=== PATIENT | female | born 1980 | race Caucasian/White ===

== ENCOUNTER 2017-05-12 19:55 | Observation (INO) | payer SELFPAY ==
[2017-05-12] MEDS ORDERED: ONDANSETRON HCL/PF 2 MG/ML VIAL IV ONE (21:36)
[2017-05-12] MEDS ORDERED: MORPHINE SULFATE 4 MG/ML SYRG IV ONE (21:36)
--- NOTE | 2017-05-12 21:37 | ERNOTE ---
Integumentary HPI - Narrative Date of Service: 05/12/17 - General Presenting Symptoms: abscess Time Seen by Provider: 05/12/17 21:21 Source: patient, RN notes reviewed Exam Limitations: no limitations - Immun/Allergies/Home Medications Immunizations: IMMUNIZATION HX Immunizations Up to Date Yes History of Influenza Vaccine Yes Hx Pneumococcal Vaccination No Allergies/Adverse Reactions: Allergies Allergy/AdvReac Type Severity Reaction Status Date / Time acetaminophen [From Vicodin] Allergy Verified 05/12/17 20:28 hydrocodone [From Vicodin] Allergy Verified 05/12/17 20:28 Home Medications: HOME MEDICATIONS Tramadol HCl [Rybix Odt] 50 mg PO 05/12/17 [Last Taken Unknown] oxyCODONE HCL/ACETAMINOPHEN [Percocet 5 MG/325 MG] 05/12/17 [Last Taken Unknown ] - History of Present Illness Narrative: 36 year old female presents to the ED for an abscess on her upper lip that began 3 days ago. She has a history of recurrent MRSA since 2011. She had an abscess near her eye about a month ago and has been taking the Bactrim leftover from this episode without improvement. She is unsure if she has had a fever. Location: Reports: facial Quality: Reports: painful Severity: severe Prior Treatment: Reports: recently seen, treated by physician, currently on antibiotics Review of Systems - Review of Systems Constitutional: Present: malaise. Absent: chills EYE: Absent: eye pain, eye discharge ENT: Present: no symptoms reported Respiratory: Absent: shortness of breath, cough Cardiology: Absent: chest pain, syncope Gastrointestinal/Abdominal: Absent: nausea, vomiting Genitourinary: Present: no symptoms reported Musculoskeletal: Absent: neck pain, joint pain Skin: Absent: rash, lesions Neurological: Present: no symptoms reported Endocrine: Present: no symptoms reported Hematologic/Lymphatic: Present: no symptoms reported Psych: Present: no symptoms reported - Patient's Past Medical History Patient History - Medical: Alcohol Abuse, Depression Patient History - Cardiac/Respiratory: No pertinent hx Patient History - Cancer: No Hx of Cancer Patient History - Surgical Procedures: Ear Tubes, T & A, Other Patient History - Other: None - Social History Living Situations: spouse Psych History: Hx of Anxiety, Hx of Depression Smoking Status: Current every day smoker Have you smoked in the past 12 months: Yes Do you dip or chew tobacco: No Alcohol Use: none Drug Use: none - Immunizations Immunizations Up to Date: Yes Hx Pneumococcal Vaccination: No History of Influenza Vaccine: Yes Physical Exam - Physical Exam General Appearance: Present: alert, mild distress, obese, other - Disheveled, poor hygiene Head Exam: Present: swelling - inflammation to upper lip, severe, indurated with small area of pointing present, tenderness - upper lip Neck: Present: normal inspection, nontender, supple Respiratory: Present: no respiratory distress, normal breath sounds, no accessory muscle use, lungs clear Cardiovascular/Chest: Present: regular rate, rhythm, no murmur, normal peripheral pulses Gastrointestinal/Abdominal: Present: nontender, nondistended, soft Neurological Exam: Present: alert, oriented, normal mood/affect Skin Exam: Present: warm/dry, skin rash - numerous crusted lesions scattered on trunk and extremities ED Progress - Results and Orders Patient's Lab Results:: I have reviewed the patient's lab results. - Vital Signs Patient's Vital Signs:: I have reviewed the patient's vital signs. Vital Signs: Vital Signs 05/12/17 20:16 Temperature 36.3 C L Pulse Rate 97 Respiratory 14 Rate Blood Pressure 134/90 O2 Sat by Pulse 98 Oximetry - Progress/Reassessment Chief Complaint: Abscess Progress:: Unchanged Progress Note-Subjective: 05/12/17 22:02 Abscess unroofed with needle, small amount of drainage expressed to obtain culture. Patient tolerated very poorly. WBC elevated at 15.5. Lactic acid pending. IV Cleocin ordered. To be started after urine obtained. - Transfer of Care Physician Sign Out: Elenita Ramos Receiving Physician: Oksana Martin Expected Disposition: Admit Departure Clinical Impression: Facial abscess - Departure Disposition: [facility] Condition: Fair Referrals: Susan Grey MD [Primary Care Provider] -
[2017-05-12 21:46] LABS: Hematocrit 43.9 % (37.0-47.0); Hemoglobin 14.6 gm/dL (12.5-16.0); Mean Cell Volume 94.4 fl (78-100); Mean Corpuscular Hemoglobin 31.4 pg (27-31); Mean Corpuscular Hgb Conc 33.3 g/dl (32-36); Mean Platelet Volume 10.9 fl (6.0-9.5); Neutrophil % 77.5 % (42-75.0); Platelet Count 274 K/mm3 (150-450); Red Blood Count 4.65 M/mm3 (4.2-5.4); Red Cell Distribution Width 12.6 % (11.5-14.0); White Blood Count 15.5 K/mm3 (4.0-10.5)
[2017-05-12 21:54] LABS: Albumin * 3.8 gm/dl (3.4-5.0); Anion Gap 11.8 mmol/L (6.8-13.8); BUN/Creatinine Ratio 11.7 (9.0-21.6); Bilirubin, Total 0.3 mg/dL (0.0-1.1); Calcium * 9.2 mg/dL (7.9-10.9); Carbon Dioxide 28.6 mmol/L (24-32.6); Potassium 4.4 mmol/L (3.4-4.6); Total Protein 8.8 gm/dL (6.2-8.2)
[2017-05-12] MEDS ORDERED: MORPHINE SULFATE 4 MG/ML SYRG ONE (21:55)
[2017-05-12] MEDS ORDERED: ONDANSETRON HCL/PF 2 MG/ML VIAL ONE (21:56)
[2017-05-12] MEDS ORDERED: CLINDAMYCIN PHOSPHATE 900 MG in DEXTROSE 5 % IN WATER 100 ML IV ONE ×2 (22:00)
[2017-05-12 22:24] LABS: Urine Bilirubin Negative (NEGATIVE); Urine Blood Negative /ul (NEGATIVE); Urine Ketone Negative (NEGATIVE); Urine Nitrite Negative (NEGATIVE); Urine Protein 30 mg/dL (NEGATIVE); Urine Specific Gravity >=1.030 SP.GR. (1.005-1.010); Urine Urobilinogen Normal (NORMAL)
[2017-05-12 22:33] LABS: Urine Appearance Cloudy; Urine Bacteria TRACE; Urine Color Yellow; Urine RBC None Seen /hpf (0-5); Urine WBC 0-5 /hpf (0-5)
[2017-05-12 22:41] LABS: Cocaine Ur Negative (NEGATIVE); Urine Barbiturate Negative (NEGATIVE); Urine Benzodiazepines Negative (NEGATIVE); Urine Opiates Negative (NEGATIVE); Urine PCP Negative (NEGATIVE)
[2017-05-12 22:42] LABS: Urine THC Positive (NEGATIVE)
--- NOTE | 2017-05-13 02:40 | ERNOTE ---
Integumentary HPI - General Presenting Symptoms: abscess Time Seen by Provider: 05/12/17 21:21 Source: patient Exam Limitations: no limitations - Immun/Allergies/Home Medications Immunizations: IMMUNIZATION HX Immunizations Up to Date Yes History of Influenza Vaccine Yes Hx Pneumococcal Vaccination No Allergies/Adverse Reactions: Allergies Allergy/AdvReac Type Severity Reaction Status Date / Time acetaminophen [From Vicodin] Allergy Verified 05/12/17 20:28 hydrocodone [From Vicodin] Allergy Verified 05/12/17 20:28 Home Medications: HOME MEDICATIONS Tramadol HCl [Rybix Odt] 50 mg PO 05/12/17 [Last Taken Unknown] oxyCODONE HCL/ACETAMINOPHEN [Percocet 5 MG/325 MG] 05/12/17 [Last Taken Unknown ] - History of Present Illness Narrative: Care taken over from Pennie Ramos. - Patient's Past Medical History Patient History - Medical: Alcohol Abuse, Depression Patient History - Cardiac/Respiratory: No pertinent hx Patient History - Cancer: No Hx of Cancer Patient History - Surgical Procedures: Ear Tubes, T & A, Other Patient History - Other: None - Social History Living Situations: spouse Psych History: Hx of Anxiety, Hx of Depression Smoking Status: Current every day smoker Have you smoked in the past 12 months: Yes Do you dip or chew tobacco: No Alcohol Use: none Drug Use: none - Immunizations Immunizations Up to Date: Yes Hx Pneumococcal Vaccination: No History of Influenza Vaccine: Yes ED Progress - Results and Orders Patient's Lab Results:: I have reviewed the patient's lab results. Results and Orders: Laboratory Results - last 24 hr 05/12/17 05/12/17 05/12/17 21:35 21:35 21:35 WBC 15.5 H RBC 4.65 Hgb 14.6 Hct 43.9 MCV 94.4 MCH 31.4 H MCHC 33.3 RDW 12.6 Plt Count 274 MPV 10.9 H Immature Gran % (Auto) 0.30 Immature Gran # (Auto) 0.05 H Neutrophils % 77.5 H Lymphocytes % 16.4 L Monocytes % 4.6 Eosinophils % 0.8 Basophils % 0.4 Nucleated RBC % 0.0 Neutrophils # 12.0 H Lymphocytes # 2.6 Monocytes # 0.7 Eosinophils # 0.1 Absolute Basophils 0.1 Sodium 135 Plasma Sodium 135 Potassium 4.4 Chloride 99 Carbon Dioxide 28.6 Anion Gap 11.8 BUN 11 Creatinine 0.94 Est GFR (Non-Af Amer) 71 BUN/Creatinine Ratio 11.7 Random Glucose 128 H Lactic Acid, Venous Calcium 9.2 Calcium Adj for Albumin 9.0 Total Bilirubin 0.3 AST 15 ALT 34 Alkaline Phosphatase 80 Total Protein 8.8 H Albumin 3.8 Serum HCG, Qual Negative Urine Color Urine Appearance Urine pH Ur Specific [place] Urine Protein Urine Glucose (UA) Urine Ketones Urine Blood Urine Nitrate Urine Bilirubin Prot Sulfosalicylic Acd Urine Urobilinogen Ur Leukocyte Esterase Urine RBC Urine WBC Ur Epithelial Cells Urine Bacteria Urine Culture Comments Urine Opiates Screen Barbiturate Screen Ur Phencyclidine Scrn Urine Amphetamine U Benzodiazepines Scrn Urine Cocaine Screen Urine Marijuana (THC) 05/12/17 05/12/17 05/12/17 22:10 22:10 22:10 WBC RBC Hgb Hct MCV MCH MCHC RDW Plt Count MPV Immature Gran % (Auto) Immature Gran # (Auto) Neutrophils % Lymphocytes % Monocytes % Eosinophils % Basophils % Nucleated RBC % Neutrophils # Lymphocytes # Monocytes # Eosinophils # Absolute Basophils Sodium Plasma Sodium Potassium Chloride Carbon Dioxide Anion Gap BUN Creatinine Est GFR (Non-Af Amer) BUN/Creatinine Ratio Random Glucose Lactic Acid, Venous 2.5 H* Calcium Calcium Adj for Albumin Total Bilirubin AST ALT Alkaline Phosphatase Total Protein Albumin Serum HCG, Qual Urine Color Yellow Urine Appearance Cloudy Urine pH 6.0 Ur Specific [place] >=1.030 Urine Protein 30 H Urine Glucose (UA) Negative Urine Ketones Negative Urine Blood Negative Urine Nitrate Negative Urine Bilirubin Negative Prot Sulfosalicylic Acd Negative Urine Urobilinogen Normal Ur Leukocyte Esterase 25 H Urine RBC None seen Urine WBC 0-5 Ur Epithelial Cells 10-25 H Urine Bacteria Trace Urine Culture Comments Culture to follow Urine Opiates Screen Negative Barbiturate Screen Negative Ur Phencyclidine Scrn Negative Urine Amphetamine Positive H U Benzodiazepines Scrn Negative Urine Cocaine Screen Negative Urine Marijuana (THC) Positive H 05/13/17 00:40 WBC RBC Hgb Hct MCV MCH MCHC RDW Plt Count MPV Immature Gran % (Auto) Immature Gran # (Auto) Neutrophils % Lymphocytes % Monocytes % Eosinophils % Basophils % Nucleated RBC % Neutrophils # Lymphocytes # Monocytes # Eosinophils # Absolute Basophils Sodium Plasma Sodium Potassium Chloride Carbon Dioxide Anion Gap BUN Creatinine Est GFR (Non-Af Amer) BUN/Creatinine Ratio Random Glucose Lactic Acid, Venous 0.6 Calcium Calcium Adj for Albumin Total Bilirubin AST ALT Alkaline Phosphatase Total Protein Albumin Serum HCG, Qual Urine Color Urine Appearance Urine pH Ur Specific [place] Urine Protein Urine Glucose (UA) Urine Ketones Urine Blood Urine Nitrate Urine Bilirubin Prot Sulfosalicylic Acd Urine Urobilinogen Ur Leukocyte Esterase Urine RBC Urine WBC Ur Epithelial Cells Urine Bacteria Urine Culture Comments Urine Opiates Screen Barbiturate Screen Ur Phencyclidine Scrn Urine Amphetamine U Benzodiazepines Scrn Urine Cocaine Screen Urine Marijuana (THC) - Vital Signs Patient's Vital Signs:: I have reviewed the patient's vital signs. Vital Signs: Vital Signs 05/12/17 05/12/17 05/13/17 20:16 23:11 00:46 Temperature 36.3 C L Pulse Rate 97 84 83 Respiratory 14 16 18 Rate Blood Pressure 134/90 115/57 149/95 O2 Sat by Pulse 98 97 99 Oximetry - CT/Ultrasound CT/Ultrasound Narrative: CT Facial with contrast No localized abscess noted, facial swelling was noted, concentrated more over the upper lip. No fractures. - Progress/Reassessment Chief Complaint: Abscess Progress:: Unchanged Procedures Lower Medial Face Date and Time: 05/13/17 00:34 I & D Prep: betadine prep Blade Size: 22 gauge needle Findings and Actions: purulent drainage small Estimated blood loss (ml): 0 - The needle was used to scrape off the top of a small yellow spot that oozed a small amount of pustular material. Complications: Pt ioan procedure well Plan - Plan Plan: Case discussed with MANOJ Portillo, she agreed to accept the patient for an observation admission for facial cellulitis. Departure Clinical Impression: Facial abscess - Departure Disposition: [facility] Condition: Fair
[2017-05-13] MEDS ORDERED: KETOROLAC TROMETHAMINE 30 MG/ML VIAL IM PRN (02:41)
[2017-05-13] MEDS ORDERED: oxyCODONE HCL/ACETAMINOPHEN 1 TAB TABLET PO PRN (02:42)
--- NOTE | 2017-05-13 03:29 | HP ---
Chief Complaint - Chief Complaint Date of Service: 05/13/17 Time of Service: 02:54 Chief Complaint: "mouth swelling, headaches, lesion on face". Source of HPI- Pt ; reliable, ERP report. History of Present Illness: Ms. Alvarado is a 36-yr-old WF with a PMH of: Anxiety, HTN & PTSD who presented to the ED with increasing swelling, pain and redness of her upper lip which begun 3 days ago. She also developed lesion on her LT chin and she noticed spreading redness to her left jaw area. She denies having fevers or chills. She reports having MRSA infected abscess in her pubic area in 2011 and received treatment with Bactrim. In Mar, 2017, she states that she had another abscess on her LT eye and she was treated with Bactrim. However, she admits that she did not complete the antibiotics course and actually used the left over pills to treat her current lip swelling/redness. At the ED tonight Laboratory studies showed she had WBC --> 15,500 with left shift, Lactic acid --> 2.5. UA was negative of infection but was positive for Amphetamines and Marijuana. The facial CT was negative of deep infections signs such as abscess. Cultures of the abscess on the upper lip was obtained by the ERP following slight opening with a needle and she received IV clindamycin. She will be admitted under observation status in order to monitor response to parenteral antibiotic therapy which will guide the choice of continued outpatient treatment, and also due to pt's history of poor adherence to medication. - Patient's Past Medical History Patient History - Medical: Alcohol Abuse, Anxiety, Depression, Other - PTSD Patient History - Cancer: No Hx of Cancer Patient History - Surgical Procedures: Ear Tubes, T & A, Other Patient History - Other: None LMP (females 10-50): last week LMP (Calendar): 05/07/17 - Family History Mother Family History - Medical: No pertinent hx Family History - Cardiac/Respiratory: No pertinent hx Father Family History - Medical: No pertinent hx Family History - Cardiac/Respiratory: No pertinent hx Family History - Cancer: Leukemia - Social History Living Situations: spouse Psych History: Hx of Anxiety, Hx of Depression Smoking Status: Current every day smoker Have you smoked in the past 12 months: Yes Do you dip or chew tobacco: No Patient requests Smoking Cessation Consult: No Initiate information on Smoking Cessation: No Alcohol Use: none Drug Use: none - Immunizations Immunizations Up to Date: Yes Hx Pneumococcal Vaccination: No History of Influenza Vaccine: Yes Review Of Systems (GEN) - Review of Systems Generalized/Overall Review: Absent: Weakness, Chills, Fever, Diaphoresis EENTM: Present: Ear Pain - LT ear, Mouth Pain, Mouth Swelling. Absent: Blurred Vision, Double Vision, Nose Pain, Nose Congestion Respiratory: Absent: Cough, Shortness of Breath, Orthopnea Cardiac: Absent: Chest Pain, Edema, Palpitations Abdominal: Absent: Nausea, Vomiting, Hematemesis, Abdominal Pain, Constipation, Diarrhea Genitourinary: Absent: Burning, Itching, Urgency, Hesitancy Musculoskeletal: Present: Neck Pain. Absent: Joint Pain, Back Pain, Muscle Pain Neurological: Present: Anxiety, Depressed. Absent: Headache, Weakness Skin: Present: Lesions - scattered lesions.. Absent: Dryness, Bruising Endocrine: Present: Intolerance to Heat. Absent: Intolerance to Cold, Increased Hunger, Flushing, Increased Thirst Immunizations: IMMUNIZATION HX Immunizations Up to Date Yes History of Influenza Vaccine Yes Hx Pneumococcal Vaccination No Allergies/Adverse Reactions: Allergies Allergy/AdvReac Type Severity Reaction Status Date / Time acetaminophen [From Vicodin] Allergy Verified 05/12/17 20:28 hydrocodone [From Vicodin] Allergy Verified 05/12/17 20:28 Home Medications: HOME MEDICATIONS Tramadol HCl [Rybix Odt] 50 mg PO Q6H PRN 05/12/17 [Last Taken Unknown] oxyCODONE HCL/ACETAMINOPHEN [Percocet 5 MG/325 MG] 1 tab PO Q6H PRN 05/12/17 [ Last Taken Unknown] Exam - Exam Vital Signs: Vital Signs - Last Taken Temp 36.7 C 05/13/17 02:22 Pulse 77 05/13/17 02:22 Resp 18 05/13/17 02:22 BP 136/60 05/13/17 02:22 Pulse Ox 97 05/13/17 02:22 Constitutional: Present: Alert, Oriented x3, Cooperative, Mild distress ENT Exam: Present: other - upper lip swelling with redness Eye Exam: bilateral eye: normal inspection, PERRL Neck: Present: non-tender, full range of motion, supple Back Exam: Present: normal inspection, no CVA tenderness Breasts: Present: Exam deferred Respiratory: Present: lungs clear, no accessory muscle use, No wheezing Cardiovascular/Chest: Present: normal peripheral pulses, regular rate, rhythm, no chest tenderness, no murmur Abdomen: Present: Normal bowel sounds, soft, nontender, obese /Rectal: Present: Exam deferred Extremity: Present: normal range of motion, non-tender, normal inspection Skin Exam: Present: other - Erythema on lt side of face Lymphatic: Present: no adenopathy Neurologic: Present: no motor/sensory deficits, alert, oriented x 3 Appearance: Present: appropriate appearance, appropriate insight Eye contact: Present: cooperative, good eye contact, normal speech Thoughts: Present: normal thought pattern, no apparent hallucination Diagnostic Studies: Laboratory Results WBC 15.5 K/mm3 (4.0-10.5) H 05/12/17 21:35 RBC 4.65 M/mm3 (4.2-5.4) 05/12/17 21:35 Hgb 14.6 gm/dL (12.5-16.0) 05/12/17 21:35 Hct 43.9 % (37.0-47.0) 05/12/17 21:35 MCV 94.4 fl (78-100) 05/12/17 21:35 MCH 31.4 pg (27-31) H 05/12/17 21:35 MCHC 33.3 g/dl (32-36) 05/12/17 21:35 RDW 12.6 % (11.5-14.0) 05/12/17 21:35 Plt Count 274 K/mm3 (150-450) 05/12/17 21:35 MPV 10.9 fl (6.0-9.5) H 05/12/17 21:35 Immature Gran % (Auto) 0.30 % (0.001-0.429) 05/12/17 21:35 Immature Gran # (Auto) 0.05 K/mm3 (0.000-0.0310) H 05/12/17 21:35 Neutrophils % 77.5 % (42-75.0) H 05/12/17 21:35 Lymphocytes % 16.4 % (20-51) L 05/12/17 21:35 Monocytes % 4.6 % (0.0-9) 05/12/17 21:35 Eosinophils % 0.8 % (0.0-3.0) 05/12/17 21:35 Basophils % 0.4 % (0.0-1.0) 05/12/17 21:35 Nucleated RBC % 0.0 k/mm3 (0-1) 05/12/17 21:35 Neutrophils # 12.0 K/mm3 (1.3-6.0) H 05/12/17 21:35 Lymphocytes # 2.6 k/mm3 (1.5-3.5) 05/12/17 21:35 Monocytes # 0.7 k/mm3 (0.0-1.0) 05/12/17 21:35 Eosinophils # 0.1 k/mm3 (0.0-0.7) 05/12/17 21:35 Absolute Basophils 0.1 k/mm3 (0.0-0.1) 05/12/17 21:35 Sodium 135 mmol/L (132-142) 05/12/17 21:35 Plasma Sodium 135 mmol/L (130-142) 05/12/17 21:35 Potassium 4.4 mmol/L (3.4-4.6) 05/12/17 21:35 Chloride 99 mmol/L (97-106) 05/12/17 21:35 Carbon Dioxide 28.6 mmol/L (24-32.6) 05/12/17 21:35 Anion Gap 11.8 mmol/L (6.8-13.8) 05/12/17 21:35 BUN 11 mg/dL (3-23) 05/12/17 21:35 Creatinine 0.94 mg/dL (0.4-1.4) 05/12/17 21:35 Est GFR (Non-Af Amer) 71 mL/min (60-130) 05/12/17 21:35 BUN/Creatinine Ratio 11.7 (9.0-21.6) 05/12/17 21:35 Random Glucose 128 mg/dL (70-110) H 05/12/17 21:35 Lactic Acid, Venous 0.6 mmol/L (0.4-1.9) 05/13/17 00:40 Calcium 9.2 mg/dL (7.9-10.9) 05/12/17 21:35 Calcium Adj for Albumin 9.0 mg/dL (8.4-10.2) 05/12/17 21:35 Total Bilirubin 0.3 mg/dL (0.0-1.1) 05/12/17 21:35 AST 15 U/L (0-48) 05/12/17 21:35 ALT 34 U/L (19-67) 05/12/17 21:35 Alkaline Phosphatase 80 U/L (50-170) 05/12/17 21:35 Total Protein 8.8 gm/dL (6.2-8.2) H 05/12/17 21:35 Albumin 3.8 gm/dl (3.4-5.0) 05/12/17 21:35 Serum HCG, Qual Negative (NEGATIVE) 05/12/17 21:35 Urine Color Yellow 05/12/17 22:10 Urine Appearance Cloudy 05/12/17 22:10 Urine pH 6.0 pH (5.0-7.0) 05/12/17 22:10 Ur Specific [place] >=1.030 SP.GR. (1.005-1.010) 05/12/17 22:10 Urine Protein 30 mg/dL (NEGATIVE) H 05/12/17 22:10 Urine Glucose (UA) Negative mg/dL (NEGATIVE) 05/12/17 22:10 Urine Ketones Negative mg/dL (NEGATIVE) 05/12/17 22:10 Urine Blood Negative /ul (NEGATIVE) 05/12/17 22:10 Urine Nitrate Negative (NEGATIVE) 05/12/17 22:10 Urine Bilirubin Negative mg/dl (NEGATIVE) 05/12/17 22:10 Prot Sulfosalicylic Acd Negative mg/dL (0) 05/12/17 22:10 Urine Urobilinogen Normal EU/dl (NORMAL) 05/12/17 22:10 Ur Leukocyte Esterase 25 /ul (NEGATIVE) H 05/12/17 22:10 Urine RBC None seen /hpf (0-5) 05/12/17 22:10 Urine WBC 0-5 /hpf (0-5) 05/12/17 22:10 Ur Epithelial Cells 10-25 /hpf (0-5) H 05/12/17 22:10 Urine Bacteria Trace (NONE) 05/12/17 22:10 Urine Culture Comments Culture to follow 05/12/17 22:10 Urine Opiates Screen Negative (NEGATIVE) 05/12/17 22:10 Barbiturate Screen Negative (NEGATIVE) 05/12/17 22:10 Ur Phencyclidine Scrn Negative (NEGATIVE) 05/12/17 22:10 Urine Amphetamine Positive (NEGATIVE) H 05/12/17 22:10 U Benzodiazepines Scrn Negative (NEGATIVE) 05/12/17 22:10 Urine Cocaine Screen Negative (NEGATIVE) 05/12/17 22:10 Urine Marijuana (THC) Positive (NEGATIVE) H 05/12/17 22:10 Assessment/Plan - Assessment/Plan (1) Facial cellulitis Assessment: Pt presented with upper lip swelling, swelling and redness that begun 3 days ago. She was noted to have another painfull dermal nodule on the LT side of face with redness extening to the LT side of face and neck. The swelling on the lips was incised with a needle by the ERP for culture collection. She received Clindamycin at the ED and will continue as its one of the Ax recommended for cellulitis with signs of systemic of systemic infection. She has MRSA risk factors:poor personal hygiene, previous antibiotic use and Vancomycin can be also used. Will monitor CBC V.S and await culture results first. Keep pain under control. May need referal to ENT or general surgery if the swelling on the lip does not reduce incase it needs needle incision to be drained. Will monitor the swelling to see if the initial opening by the ERP will allow the abscess to drain slowly. Problem: Acute (2) painful dermal /subcutenous nodule Assessment: Same as aboive Problem: Acute (3) HTN (hypertension) Problem: Chronic Qualifiers: Hypertension type: essential hypertension Qualified Code(s): I10 - Essential (primary) hypertension (4) Anxiety Problem: Chronic
[2017-05-13] MEDS ORDERED: KETOROLAC TROMETHAMINE 30 MG/ML VIAL IV PRN (03:57)
[2017-05-13] MEDS ORDERED: CLINDAMYCIN PHOSPHATE 600 MG in DEXTROSE 5 % IN WATER 100 ML IV SCH ×2 (05:00)
[2017-05-13 05:56] LABS: Hematocrit 38.8 % (37.0-47.0); Hemoglobin 13.1 gm/dL (12.5-16.0); Mean Cell Volume 93.7 fl (78-100); Mean Corpuscular Hemoglobin 31.6 pg (27-31); Mean Corpuscular Hgb Conc 33.8 g/dl (32-36); Neutrophil # 8.9 K/mm3 (1.3-6.0); Neutrophil % 63.6 % (42-75.0); Platelet Count 233 K/mm3 (150-450); Red Blood Count 4.14 M/mm3 (4.2-5.4); Red Cell Distribution Width 12.5 % (11.5-14.0); White Blood Count 13.9 K/mm3 (4.0-10.5)
[2017-05-13] MEDS: VANCOMYCIN HCL 1.75 GM in DEXTROSE 5 % IN WATER 500 ML IV SCH ×4 (11:28→23:28)
[2017-05-13] MEDS: CLINDAMYCIN PHOSPHATE 600 MG in DEXTROSE 5 % IN WATER 50 ML IV SCH ×4 (14:00→21:07)
[2017-05-13] MEDS: SACCHAROMYCES BOULARDII 250 MG CAPSULE PO SCH (21:07)
[2017-05-14] MEDS: CLINDAMYCIN PHOSPHATE 600 MG in DEXTROSE 5 % IN WATER 50 ML IV SCH ×6 (04:59→21:03)
[2017-05-14 06:15] LABS: Hematocrit 39.2 % (37.0-47.0); Hemoglobin 13.3 gm/dL (12.5-16.0); Mean Cell Volume 93.1 fl (78-100); Mean Corpuscular Hemoglobin 31.6 pg (27-31); Mean Corpuscular Hgb Conc 33.9 g/dl (32-36); Mean Platelet Volume 10.7 fl (6.0-9.5); Neutrophil % 49.7 % (42-75.0); Platelet Count 254 K/mm3 (150-450); Red Blood Count 4.21 M/mm3 (4.2-5.4); Red Cell Distribution Width 12.1 % (11.5-14.0)
[2017-05-14] MEDS: SACCHAROMYCES BOULARDII 250 MG CAPSULE PO SCH ×2 (08:53→21:04)
--- NOTE | 2017-05-14 09:18 | PN ---
Subjective - Date and Time Seen Date: 05/14/17 Time: 09:11 Subjective Narrative: Patient is feeling better. Lip is less swollen. GS -moderate Staph species. Objective - Review of Systems Generalized/Overall Review: Denies: Chills, Fever EENTM: Denies: Blurred Vision Respiratory: Denies: Cough, Shortness of Breath Cardiac: Denies: Chest Pain, Palpitations Abdominal: Denies: Nausea, Vomiting Genitourinary Symptoms: Denies: Urgency, Frequency Skin: Reports: Lesions - lip - Vitals Vitals: Last Vital Signs Temp 36.7 C 05/14/17 06:47 Pulse 65 05/14/17 06:47 Resp 16 05/14/17 06:47 BP 149/74 05/14/17 06:47 Pulse Ox 97 05/14/17 06:47 - Abnormal Lab Findings Abnormal Lab Findings: Abnormal Lab Results 05/14/17 Range/Units 05:20 MCH 31.6 H (27-31) pg MPV 10.7 H (6.0-9.5) fl Eosinophils % 3.9 H (0.0-3.0) % - Exam Constitutional: Present: Alert, Oriented x3, Cooperative, Morbidly obese ENT Exam: Present: hearing grossly normal Neck: Present: supple Respiratory: Present: normal breath sounds, No rales, No wheezing Cardiovascular/Chest: Present: regular rate, rhythm, no JVD, no murmur Abdomen: Present: Normal bowel sounds, soft, nontender, nondistended Extremity: Present: no pedal edema, no calf tenderness Assessment/Plan - Problems/Diagnosis (1) Facial cellulitis Problem: Acute Narrative: continue with IV antbiotics. await final C & S. will need referrral to I.D. outpatient for work up of recurrent Staph infections. she still has her spleen. (2) Facial abscess Problem: Acute Narrative: spontaneouslly drained yesterday, continue with IV antibiotics. (3) HTN (hypertension) Problem: Chronic Qualifiers: Hypertension type: essential hypertension Qualified Code(s): I10 - Essential (primary) hypertension (4) Anxiety Problem: Chronic
[2017-05-14] MEDS: VANCOMYCIN HCL 1.75 GM in DEXTROSE 5 % IN WATER 500 ML IV SCH ×4 (12:08→23:33)
[2017-05-15] MEDS: CLINDAMYCIN PHOSPHATE 600 MG in DEXTROSE 5 % IN WATER 50 ML IV SCH ×2 (04:46)
[2017-05-15] MEDS: SACCHAROMYCES BOULARDII 250 MG CAPSULE PO SCH (08:15)
--- NOTE | 2017-05-15 10:17 | DS ---
(1) Facial cellulitis Problem: Acute (2) Facial abscess Problem: Acute (3) HTN (hypertension) Problem: Chronic Qualifiers: Hypertension type: essential hypertension Qualified Code(s): I10 - Essential (primary) hypertension (4) Anxiety Problem: Chronic Description of Stay: Declan Alvarado is a 36-yr-old WF with a PMH of: Anxiety, HTN & PTSD who presented to the ED and admitted on 05/13/17 with increasing swelling, pain and redness of her upper lip which begun 3 days [employer]. She also developed lesion on her LT chin and she noticed spreading redness to her left jaw area. She denied having fevers or chills. She reports having MRSA infected abscess in her pubic area in 2011 and received treatment with Bactrim. In Mar, 2017, she states that she had another abscess on her LT eye and she was treated with Bactrim. However, she admits that she did not complete the antibiotics course and actually used the left over pills to treat her current lip swelling/redness. At the ED Laboratory studies showed she had WBC --> 15,500 with left shift, Lactic acid -- > 2.5. UA was negative of infection but was positive for Amphetamines and Marijuana. The facial CT was negative of deep infections signs such as abscess. Cultures of the abscess on the upper lip was obtained by the ERP following slight opening with a needle and she received IV clindamycin. She was also started on IV vancomycin. Her culture grew MRSA . Her facial swelling/redness has gone down significanlty and her WBC is down to normal. Will discharge her today on Clindamycin. She was told that she will need a consult to [facility] for recurrent Staph Infection. She will follow up with her PCP this week. Procedures Performed: none Discharge Disposition: Home self care Disposition: Home self-care Condition: Fair Discharge Activity: Activity as tolerated Discharge Diet: Low salt Referrals: Susan Grey MD [Primary Care Provider] - Problem Oriented Discharge Instructions to Patient/Family: Cellulitis, Adult, [id number], MRSA FAQs - [place] Additional Patient Instructions (free text): Follow up Dr. María Grey May 18 at 1:00 PM. Fax information to [phone]. Prescriptions (Any new or edited meds): Clindamycin HCl [Cleocin HCl] 300 mg PO QID 10 Days #40 capsule Saccharomyces Boulardii [Florastor] 250 mg PO BID #60 capsule Complete Home Medications List: Complete Home Medication List: Tramadol HCl [Rybix Odt] 50 mg PO Q6H PRN 05/12/17 oxyCODONE HCL/ACETAMINOPHEN [Percocet 5 MG/325 MG] 1 tab PO Q6H PRN 05/12/17 Clindamycin HCl [Cleocin HCl] 300 mg PO QID 10 Days #40 capsule 05/15/17 Saccharomyces Boulardii [Florastor] 250 mg PO BID #60 capsule 05/15/17
[2017-05-15] MEDS ORDERED: VANCOMYCIN HCL LEVEL XX ONE (10:30)
[2017-05-15] MEDS: VANCOMYCIN HCL 1.75 GM in DEXTROSE 5 % IN WATER 500 ML IV SCH ×2 (12:12)
[2017-05-16 08:27] VITALS: BP 141/78
== END 2017-05-15 15:16 | disposition home or self-care (01) ==
LOC: ER 19:55 → MS 05-13 01:51
PROVIDERS: ADMIT Nurse Practitioner; ATTEND Internal Medicine
PROC: 0H91XZZ Drainage of Face Skin, External Approach (ICD-10-PCS; principal; 2017-05-12)
DX: K13.0 Diseases of lips (principal); L02.01 Cutaneous abscess of face; I10 Essential (primary) hypertension; F41.9 Anxiety disorder, unspecified; Z68.36 Body mass index [BMI] 36.0-36.9, adult; Z86.14 Personal history of Methicillin resistant Staphylococcus aureus infection; F17.200 Nicotine dependence, unspecified, uncomplicated
CPT/HCPCS: 10060; 36415; 70487; 80053; 80202; 80307; 81001; 83605; 84703; 85025; 86140; 87040; 87070; 87077; 87081; 87086; 87186; 96365; 96366; 96367; 96372; 96375; 96376; 99285; G0378; J2405